=== PATIENT | male | born 1950 | race Caucasian/White ===

== ENCOUNTER 2024-08-22 10:39 | Emergency (ER) | payer OTHER ==
[2024-08-22] MEDS ORDERED: Acetaminophen 500 MG TAB ONE (11:16)
[2024-08-22] MEDS ORDERED: Iopamidol 300 61% 100 ML VIAL FS ONE (12:18)
[2024-08-22 12:23] LABS: #Basophils 0.04 10x3/uL (0.0-0.2); #Eosinphils 0.14 10x3/uL (0.0-0.5); #Monocytes 0.64 10x3/uL (0.0-1.1); #Neutrophils 7.34 10x3/uL (1.5-8.4); %Basophils 0.4 % (0.0-2.0); %Eosinophils 1.5 % (0.0-6.0); %Lymphocytes 9.1 % (18.0-47.0); %Neutrophils 80.5 % (40.0-75.0); Hematocrit 35.4 % (38.8-50.0); Hemoglobin 12.4 g/dL (13.5-17.5); Mean Corpuscular Hemoglobin 30.2 pg (27.0-33.0); Mean Corpuscular Volume 86.3 fL (81.2-95.1); Mean Platelet Volume 9.9 fL (7.4-10.4); Platelet Count 160 10x3/uL (150-450); RBC Distribution Width 14.2 % (11.5-14.5); White Blood Cell (WBC) Count 9.1 10x3/uL (3.5-10.5)
[2024-08-22 12:31] LABS: Bilirubin Neg (Negative); Blood, Urine Negative (Negative); Glucose, Urine (Dipstick) Normal (Negative); Ketone, Urine Negative (Negative); Leukocyte Negative (Negative); Nitrite Negative (Negative); Protein, Urine (Dipstick) Negative (Neg-Trace); Urobilinogen Normal mg/dL (Less than 2)
[2024-08-22 12:32] LABS: Clarity Clear (Clear)
[2024-08-22 12:34] LABS: ALT (SGPT) 13 U/L (8-55); AST (SGOT) 16 U/L (5-34); Albumin 3.9 g/dL (3.4-4.8); Alkaline Phosphatase 64 U/L (40-110); Anion Gap 14 mmol/L (10-20); BUN (Urea Nitrogen) 14 mg/dL (8.4-25.7); Bilirubin, Total 0.4 mg/dL (0.2-1.2); Calc. Creatinine Clearance 0 mL/min (70-130); Calcium 8.8 mg/dL (7.8-10.44); Carbon Dioxide 22 mmol/L (23-31); Chloride 99 mmol/L (98-107); Estimated GFR 90; Globulin 2.7 g/dL (2.4-3.5); Glucose 92 mg/dL (83-110); Lipase 17 U/L (8-78); Potassium 4.8 mmol/L (3.5-5.1); Protein, Total 6.6 g/dL (5.8-8.1); Sodium 130 mmol/L (136-145)
[2024-08-22 12:38] LABS: Troponin I 0.017 ng/mL (< 0.028)
[2024-08-22 12:42] LABS: Bacteria/HPF None Seen HPF (None Seen); CAUTI Indications for Culture Pelvic or flank pain; RBC/HPF None Seen HPF (0-3); Squamous Epithelial 0-3 HPF (0-3); WBC/HPF None Seen HPF (0-3)
[2024-08-22 12:43] LABS: Urine Culture Reflex No No
[2024-08-22] MEDS ORDERED: Famotidine 20 MG TAB ONE (13:04)
[2024-08-22 15:27] LABS: Troponin I 0.021 ng/mL (< 0.028)
[2024-08-24 08:11] LABS: Actual Bicarbonate (HCO3v) 20.2 mEq/L (22-28); Analyzer IN Cardio CS ER; Base Excess -3.4 mEq/L (-2 - +2); Chloride (VBG) 97 mmol/L (98-106); Hematocrit-VBG 40 % (42.0-52.0); Hemoglobin (Hb) 13.5 g/dL (12.6-17.4); Potassium (VBG) 4.53 mmol/L (3.70-5.30); Puncture Site Other Site; RapidComm Collect By lab; Sodium 132 mmol/L (133-146); pH (venous) 7.416 (7.32-7.43)
== END 2024-08-22 15:50 ==
LOC: CSHERS 10:39 → EEVIPCON 10:39 → CSHERS 15:50
DX: R10.31 Right lower quadrant pain (principal); R10.32 Left lower quadrant pain; I11.0 Hypertensive heart disease with heart failure; I50.9 Heart failure, unspecified; I48.91 Unspecified atrial fibrillation; I25.10 Atherosclerotic heart disease of native coronary artery without angina pectoris; J44.9 Chronic obstructive pulmonary disease, unspecified; M19.90 Unspecified osteoarthritis, unspecified site; Z79.82 Long term (current) use of aspirin; Z79.899 Other long term (current) drug therapy
CPT/HCPCS: 36415; 71045; 74177; 80053; 81001; 82805; 83690; 83735; 83880; 84484; 85025; 93005; Q9967

== ENCOUNTER 2024-09-05 14:26 | Emergency (ER) | payer OTHER ==
[2024-09-05 16:49] LABS: #Basophils 0.02 10x3/uL (0.0-0.2); #Eosinphils 0.13 10x3/uL (0.0-0.5); #Monocytes 0.39 10x3/uL (0.0-1.1); #Neutrophils 3.94 10x3/uL (1.5-8.4); %Basophils 0.4 % (0.0-2.0); %Eosinophils 2.5 % (0.0-6.0); %Lymphocytes 11.7 % (18.0-47.0); %Monocytes 7.6 % (0.0-10.0); %Neutrophils 77.2 % (40.0-75.0); Hematocrit 33.7 % (38.8-50.0); Hemoglobin 11.8 g/dL (13.5-17.5); Mean Corpuscular Hemoglobin 29.9 pg (27.0-33.0); Mean Corpuscular Volume 85.3 fL (81.2-95.1); Mean Platelet Volume 10.3 fL (7.4-10.4); Platelet Count 149 10x3/uL (150-450); RBC Distribution Width 14.1 % (11.5-14.5); Red Blood Cell (RBC) Count 3.95 10x6/uL (4.32-5.72); White Blood Cell (WBC) Count 5.1 10x3/uL (3.5-10.5)
[2024-09-05 16:55] LABS: ALT (SGPT) 13 U/L (8-55); AST (SGOT) 19 U/L (5-34); Albumin 3.7 g/dL (3.4-4.8); Alkaline Phosphatase 62 U/L (40-110); Anion Gap 13 mmol/L (10-20); BUN (Urea Nitrogen) 7 mg/dL (8.4-25.7); Bilirubin, Total 0.5 mg/dL (0.2-1.2); Calc. Creatinine Clearance 0 mL/min (70-130); Calcium 8.3 mg/dL (7.8-10.44); Carbon Dioxide 20 mmol/L (23-31); Chloride 93 mmol/L (98-107); Estimated GFR 94; Globulin 2.5 g/dL (2.4-3.5); Glucose 92 mg/dL (83-110); Lipase 10 U/L (8-78); Potassium 4.2 mmol/L (3.5-5.1); Protein, Total 6.2 g/dL (5.8-8.1); Sodium 122 mmol/L (136-145)
[2024-09-05 17:01] LABS: Troponin I 0.026 ng/mL (< 0.028)
[2024-09-05] MEDS ORDERED: Morphine 4 MG/ML VIAL ONE (17:12)
[2024-09-05] MEDS ORDERED: Ondansetron PF 4 MG/2 ML Vial ONE (17:13)
[2024-09-05] MEDS ORDERED: Furosemide 40 MG (4 mL) VIAL ONE (20:22)
== END 2024-09-06 00:04 | disposition short-term general hospital (02) ==
LOC: EEVIPCON 14:26 → CSHERS 14:26
DX: E87.1 Hypo-osmolality and hyponatremia (principal); R07.2 Precordial pain; I25.10 Atherosclerotic heart disease of native coronary artery without angina pectoris; I48.91 Unspecified atrial fibrillation; J44.9 Chronic obstructive pulmonary disease, unspecified; I11.0 Hypertensive heart disease with heart failure; I50.9 Heart failure, unspecified; D64.9 Anemia, unspecified; E03.9 Hypothyroidism, unspecified; F32.A Depression, unspecified; Z55.0 Illiteracy and low-level literacy; Z79.82 Long term (current) use of aspirin; Z79.899 Other long term (current) drug therapy
CPT/HCPCS: 36415; 71045; 80053; 83690; 83880; 84484; 85025; 93005; 96374; 96375; J1940; J2272; J2405

== ENCOUNTER 2024-11-23 03:48 | Emergency (ER) | payer OTHER ==
[2024-11-23] MEDS ORDERED: Ipratropium/Albuterol 3 ML NEB ONE (04:41)
[2024-11-23 05:30] LABS: #Basophils 0.02 10x3/uL (0.0-0.2); #Eosinophils 0.01 10x3/uL (0.0-0.5); #Monocytes 0.87 10x3/uL (0.0-1.1); %Basophils 0.1 % (0.0-2.0); %Eosinophils 0.1 % (0.0-6.0); %Lymphocytes 3.7 % (18.0-47.0); %Neutrophils 89.2 % (40.0-75.0); Hematocrit 30.1 % (38.8-50.0); Hemoglobin 9.7 g/dL (13.5-17.5); Mean Corpuscular HGB CONC 32.2 g/dL (32.0-36.0); Mean Corpuscular Hemoglobin 28.1 pg (27.0-33.0); Mean Corpuscular Volume 87.2 fL (81.2-95.1); Mean Platelet Volume 10.7 fL (7.4-10.4); Platelet Count 248 10x3/uL (150-450); RBC Distribution Width 15.1 % (11.5-14.5); Red Blood Cell (RBC) Count 3.45 10x6/uL (4.32-5.72); White Blood Cell (WBC) Count 14.5 10x3/uL (3.5-10.5)
[2024-11-23 05:45] LABS: ALT (SGPT) 22 U/L (8-55); AST (SGOT) 21 U/L (5-34); Albumin 3.8 g/dL (3.4-4.8); Alkaline Phosphatase 74 U/L (40-110); Anion Gap 19 mmol/L (10-20); BUN (Urea Nitrogen) 16 mg/dL (8.4-25.7); Bilirubin, Total 0.9 mg/dL (0.2-1.2); Calc. Creatinine Clearance 0 mL/min (70-130); Carbon Dioxide 20 mmol/L (23-31); Chloride 103 mmol/L (98-107); Estimated GFR 93; Globulin 2.9 g/dL (2.4-3.5); Glucose 109 mg/dL (83-110); Potassium 3.9 mmol/L (3.5-5.1); Protein, Total 6.7 g/dL (5.8-8.1); Sodium 138 mmol/L (136-145)
[2024-11-23 05:46] LABS: Troponin I 0.035 ng/mL (< 0.028)
[2024-11-23] MEDS ORDERED: Nitroglycerin 2% Ointment 1 INCH/1 GM Packet ONE (05:50)
[2024-11-23] MEDS ORDERED: Furosemide 40 MG (4 mL) VIAL ONE ×2 (05:50→11:12)
[2024-11-23] MEDS ORDERED: cefTRIAXone (ROCEPHIN) 1 GM VIAL ONE (06:11)
[2024-11-23] MEDS ORDERED: Sterile Water 10 ML ONE (06:12)
[2024-11-23] MEDS ORDERED: Azithromycin 500 MG VIAL ONE (09:08)
[2024-11-23 09:14] LABS: Troponin I 0.034 ng/mL (< 0.028)
[2024-11-23 09:45] LABS: Actual Bicarbonate (HCO3v) 22.5 mEq/L (22-28); Analyzer IN Cardio CS ER; Base Excess -1.5 mEq/L (-2 - +2); Calcium, Ionized (venous) 1.09 mmol/L (1.16-1.32); Chloride (VBG) 101 mmol/L (98-106); Hematocrit-VBG 33 % (42.0-52.0); Hemoglobin (Hb) 11.2 g/dL (12.6-17.4); Potassium (VBG) 3.97 mmol/L (3.70-5.30); Puncture Site Other Site; Sodium 138 mmol/L (133-146)
== END 2024-11-23 13:42 | disposition short-term general hospital (02) ==
LOC: EEVIPCON 03:48 → CSHERS 03:48
DX: I11.0 Hypertensive heart disease with heart failure (principal); I50.1 Left ventricular failure, unspecified; R09.02 Hypoxemia; I25.10 Atherosclerotic heart disease of native coronary artery without angina pectoris; I48.91 Unspecified atrial fibrillation; Z79.82 Long term (current) use of aspirin
CPT/HCPCS: 36415; 70450; 71045; 71275; 74177; 80053; 82805; 83605; 83880; 84484; 85025; 87040; 93005; 94660; 96365; 96372; 96375; J0456; J0696; J1940; J7620